=== PATIENT | male | born 1960 | race Caucasian/White ===

== ENCOUNTER → 2017-11-19 | Outpatient (CLI) | payer MEDICARE ==
--- NOTE | 2017-11-20 14:35 | CT ---
EXAM DESCRIPTION: Chest w/o Contrast : Computed Tomography. CLINICAL HISTORY: PLEURAL EFFUSION COMPARISON: None. TECHNIQUE: Spiral-axial scans at 5.0 mm intervals through the lungs and thorax without IV contrast. 2.5 mm lung algorithm axial reconstructions. Coronal and sagittal 2.0 Mm reconstructions. No adverse reactions. Total Exam DLP: 774.43 mGy-cm. This exam was performed according to our departmental dose-optimization program which includes automated exposure control, adjustment of the mA and/or kV according to patient size and/or use of iterative reconstruction technique; to reduce radiation dose to as low as reasonably achievable (ALARA). FINDINGS: Moderate left pleural effusion with thickening of the left major fissure. Atelectasis in the left lower lobe. Minimal scarring in the base of the right lower lobe abutting the hemidiaphragm (series 4, image 111). Small pleural nodule medially abutting the right upper lobe (image 22). Bilateral mild perihilar peribronchial wall cuffing. No right pleural effusion. No pneumothorax bilaterally. No abnormal nodules or masses bilaterally. Evaluation of the soft tissues limited by lack of IV contrast. Heterogeneous density bilateral thyroid gland. No adenopathy in the axilla. No large soft tissue masses in the mediastinum or hilum. Atherosclerotic calcification in the brachiocephalic vessels and thoracic aorta. Coronary artery calcifications and/or stents. Sternotomy wires. Pericardial surgical clips. Sub- diaphragmatic peritoneal space contains no fluid. Included adrenal glands and spleen normal size and density. Possible cyst mid left kidney partially seen. Possible gravel or sludge dependent gallbladder. Fatty stranding in the anterior epigastrium. Narrowing of the thoracic disc spaces with anterior ridging and bridging. Left glenohumeral joint arthrosis.. IMPRESSION: 1. Moderate left pleural effusion also involving left major fissure. Left lower lobe atelectasis. Small pleural nodule in the right upper lobe is less than 2 mm in diameter. Bilateral mild perihilar bronchitis or be acute or chronic. No effusion on the right. No pneumothorax. 2. Atherosclerotic changes in the aorta and coronary arteries. 3. Sludge or gravel in the dependent gallbladder. Fatty stranding in the superior epigastrium. Consider abdominal ultrasound. Electronically signed by: Jacob Nguyen MD 11/20/2017 2:34 PM CDT
== END ==
LOC: CT 10:12
PROVIDERS: ATTEND Nurse Practitioner
DX: J90 Pleural effusion, not elsewhere classified (principal)

== ENCOUNTER → 2018-06-27 | Outpatient (CLI) | payer MEDICARE ==
--- NOTE | 2018-06-27 18:13 | US ---
EXAM DESCRIPTION: Carotid Duplex CLINICAL HISTORY: BRUIT COMPARISON: None Available. TECHNIQUE: Carotid Doppler ultrasound FINDINGS: Right Submitted images show no significant stenosis in the common carotid, internal carotid or external carotid arteries. Mild calcified plaque at the right carotid bulb. The following flow velocities were obtained: Common carotid artery peak systolic flow velocity measures 86 centimeters per second. Internal carotid artery peak systolic flow velocity measures 53 centimeters per second. External carotid artery peak systolic flow velocity measures 67 centimeters per second. Flow in the right vertebral artery is antegrade. The right internal carotid to common carotid peak systolic flow velocity ratio equals 0.6 which is normal. Left Submitted images show normal caliber of the left common carotid, internal carotid and external carotid arteries with no significant stenosis. Mild calcified plaque at the left carotid bifurcation. Axial images show proximal left ICA area stenosis of 33% with left carotid bulb area stenosis of 26%. The following flow velocities were obtained: Common carotid artery peak systolic flow velocity measures 97 centimeters per second. Internal carotid artery peak systolic flow velocity measures 61 centimeters per second. External carotid artery peak systolic flow velocity measures 57 centimeters per second. Flow in the left vertebral artery is antegrade. The left internal carotid to common carotid peak systolic flow velocity ratio of 0.6 is normal. IMPRESSION: Arteriosclerotic plaque at the bilateral carotid bifurcations. No hemodynamically significant stenosis. Electronically signed by: Uriel Arboleda MD 06/27/2018 6:11 PM [employer]
== END ==
LOC: US 15:37
PROVIDERS: ATTEND Internal Medicine Cardiovascular Disease
DX: R09.89 Other specified symptoms and signs involving the circulatory and respiratory systems (principal); I65.23 Occlusion and stenosis of bilateral carotid arteries

== ENCOUNTER → 2018-12-18 | Outpatient (CLI) | payer MEDICARE | LOC: TXRM 15:30 | PROVIDERS: ATTEND Internal Medicine Nephrology | DX: Z49.01 Encounter for fitting and adjustment of extracorporeal dialysis catheter (principal); N18.9 Chronic kidney disease, unspecified ==

== ENCOUNTER → 2019-04-24 | Outpatient (CLI) | payer MEDICARE ==
[2019-04-24 11:01] VITALS: TEMP 97.1; O2SAT 98
[2019-04-24 11:32] VITALS: BP 152/92
== END ==
LOC: AMB 05:48 → TXRM 05:48 → EDSTATUS 10:00
PROVIDERS: ATTEND Internal Medicine Nephrology
DX: Z45.2 Encounter for adjustment and management of vascular access device (principal)

== ENCOUNTER 2019-06-19 05:40 | Outpatient (CLI) | payer MEDICARE ==
[2019-06-19 14:22] VITALS: BP 138/95; TEMP 97.7; O2SAT 99
== END 2019-06-19 13:50 | disposition home or self-care (01) ==
LOC: TXRM 05:40 → AMB 05:40 → EDSTATUS 13:00 → TXRM 13:50
PROVIDERS: ATTEND Internal Medicine Nephrology
DX: Z45.2 Encounter for adjustment and management of vascular access device (principal)

== ENCOUNTER → 2019-07-20 | Outpatient (CLI) | payer MEDICARE ==
--- NOTE | 2019-07-20 10:09 | CT ---
EXAM DESCRIPTION: Abdomen w/Contrast CLINICAL HISTORY: END STAGE RENAL DISEASE RECURRENT ABDOMINAL PAIN COMPARISON: None. TECHNIQUE: Postcontrast CT images of the abdomen are obtained. This exam was performed according to our departmental dose-optimization program, which includes automated exposure control, adjustment of the mA and/or kV according to patient size and/or use of iterative reconstruction technique . FINDINGS: The heart is enlarged. Small left pleural effusion. Focal area of consolidation or atelectasis in the left lower lobe is seen with mild linear interstitial scarring or atelectasis in the lingula. Sternotomy wires are seen. Liver is heterogeneous and decreased attenuation. Reflux of contrast into the hepatic veins. Small amount of ascites is seen around the liver greater than spleen. Spleen and adrenal glands are unremarkable. Surgical clips from cholecystectomy are seen. Pancreas is unremarkable. Moderate atherosclerotic disease. Arterial phase imaging is seen with limited opacification of the superior mesenteric vein and main portal vein. Decreased attenuation surrounded by contrast in the superior mesenteric vein to the portal vein confluence is seen. No free intraperitoneal air. Stomach is poorly distended but unremarkable. No small bowel obstruction or bowel wall thickening. Mild wall thickening of the at least right colon is seen. Colon is poorly distended. No significant diverticular disease. Kidneys show moderate vascular calcifications and decreased cortical enhancement. No hydronephrosis. No pathologically enlarged abdominal or retroperitoneal adenopathy. Osseous structures show no aggressive bony lesions. Moderate spondylitic changes of the lower thoracic to lumbar spine are seen with hypertrophic bridging marginal endplate osteophytes over multiple level suggesting diffuse idiopathic skeletal hyperostosis. IMPRESSION: Small ascites in the abdomen and pelvis likely reactive, but of unknown etiology or clinical significance. Filling defect and lack of opacification of the superior mesenteric vein could represent arterial and early portal venous timing of contrast injection versus mesenteric vein thrombosis. Consider mesenteric vein ultrasound imaging to exclude thrombus in the SMV and portal vein. Mild bowel wall thickening of the colon could represent nonspecific (likely infectious or inflammatory process) colitis mainly involving the right colon versus poor distention of colon. Small left pleural effusion with compressive atelectasis and/or pneumonia versus aspiration in the left lower lobe. Recommend follow-up until resolution to exclude neoplastic process. Electronically signed by: Luke Jackson MD 07/20/2019 10:08 AM [facility]
== END ==
LOC: CT 08:35
PROVIDERS: ATTEND Internal Medicine Nephrology
DX: N18.6 End stage renal disease (principal); R18.8 Other ascites; K63.9 Disease of intestine, unspecified; J91.8 Pleural effusion in other conditions classified elsewhere; R91.8 Other nonspecific abnormal finding of lung field